=== PATIENT | male | born 1940 | race African-American/Black ===

== ENCOUNTER 2019-06-29 13:37 | Emergency (ER) | payer SELFPAY | END 2019-06-29 13:59 | disposition left against medical advice (07) | LOC: ER 13:37 | DX: M25.561 Pain in right knee (principal); M25.562 Pain in left knee; Z53.21 Procedure and treatment not carried out due to patient leaving prior to being seen by health care provider ==

== ENCOUNTER → 2021-08-24 | Outpatient (CLI) | payer OTHER ==
--- NOTE | 2021-08-24 17:00 | KCIC ---
EXAMINATION: XR EXAM OF ANKLE_RIGHT 3VIEWS. HISTORY: 81 years Male Reason: RIGHT ANKLE FRACTURE / Spl. Instructions: Trauma to rt ankle fx Apr 2021. Follow up xray, swelling. / History: . COMPARISON: No prior studies are available to compare at our institution. FINDINGS: The distal tibia shaft demonstrate the calcifications within the medulla which could be secondary to a bone infarct or a chondroid lesion. There is no bone erosion to suggest an aggressive lesion. There is a nondisplaced fracture involving the distal fibula in an oblique fashion just above the mike nt level. There is a 5 mm from bone fragment along the undersurface of the medial malleolus probably sequela of an old injury. There are soft tissue calcifications involving the posterior from medial as pect of the lower leg. This could be posttraumatic as well. IMPRESSION: 1. Nondisplaced oblique fracture along the distal fibula. This is presumably acute. Based on the hist ory of old injury, correlation with old radiographs if available and location of pain and tenderness would be helpful. 2. Distal tibia medullary calcified lesion could represent a bone infarct or chondroid lesion. No agg ressive features seen. Electronically signed by: Jose Batista MD (08/24/2021 4:58 PM) [id number]
== END ==
LOC: KCIC 13:51
PROVIDERS: ATTEND Family Medicine
DX: S82.434A Nondisplaced oblique fracture of shaft of right fibula, initial encounter for closed fracture (principal); M89.8X6 Other specified disorders of bone, lower leg; X58.XXXA Exposure to other specified factors, initial encounter; Y93.89 Activity, other specified; Y92.89 Other specified places as the place of occurrence of the external cause; Y99.8 Other external cause status
CPT/HCPCS: 73610